=== PATIENT | female | born 1965 | race Caucasian/White ===

== ENCOUNTER → 2017-02-10 | Outpatient (CLI) | payer OTHER ==
[~2017-02-10] MED LIST: ADVIL200 MG PO; SYNTHROID0.125 MG/T PO
== END ==
LOC: MC.RAD 08:00
DX: Z12.31 Encounter for screening mammogram for malignant neoplasm of breast (principal)

== ENCOUNTER 2017-03-13 08:47 | Day surgery (SDC) | payer OTHER ==
[~2017-03-13] VITALS: Ht 160 cm; Wt 93.1 kg
[2017-03-13 09:35] VITALS: BP 149/92; PULSE 75; TEMP 97.9
[2017-03-13] MEDS ORDERED: SYNTHROID0.125 MG/T PO (09:39)
[2017-03-13] MEDS ORDERED: ADVIL200 MG PO (09:40)
[2017-03-13 10:20] VITALS: BP 119/62; PULSE 76
[2017-03-13 10:35] VITALS: BP 116/70; PULSE 77
[2017-03-13 10:50] VITALS: BP 103/58; PULSE 69
[2017-03-13 13:22] VITALS: BP 102/57; PULSE 81
== END 2017-03-13 11:05 | disposition home or self-care (01) ==
LOC: SDCO 08:47
DX: R10.9 Unspecified abdominal pain (principal); K59.00 Constipation, unspecified; R14.3 Flatulence
CPT/HCPCS: J2250; J2405; J3010

== ENCOUNTER → 2018-02-09 | Outpatient (CLI) | payer OTHER | LOC: MC.RAD 07:20 | DX: Z12.31 Encounter for screening mammogram for malignant neoplasm of breast (principal) ==

== ENCOUNTER → 2019-02-10 | Outpatient (CLI) | payer OTHER | LOC: MC.RAD 07:23 | DX: Z12.31 Encounter for screening mammogram for malignant neoplasm of breast (principal) ==

== ENCOUNTER → 2020-03-08 | Outpatient (CLI) | payer OTHER | LOC: MC.RAD 07:30 | DX: Z12.31 Encounter for screening mammogram for malignant neoplasm of breast (principal) ==

== ENCOUNTER → 2021-03-28 | Outpatient (CLI) | payer OTHER | LOC: MC.RAD 10:01 | DX: Z12.31 Encounter for screening mammogram for malignant neoplasm of breast (principal) ==

== ENCOUNTER → 2022-04-29 | Outpatient (CLI) | payer BC | LOC: MC.RAD 11:09 | DX: Z12.31 Encounter for screening mammogram for malignant neoplasm of breast (principal) ==